=== PATIENT | female | born 1965 | race Caucasian/White ===

== ENCOUNTER 2017-01-06 09:10 | Emergency (ER) | payer OTHER ==
[~2017-01-06] VITALS: Ht 182.9 cm; Wt 66.3 kg
[~2017-01-06 09:10] MED LIST: ILOTYCIN1 GM LEFT EYE; NAPROXEN500 MG PO; PREDNISONE20 MG PO; VALIUM2 MG PO
[2017-01-06 10:27] LABS: INFLUENZA A VIRAL ANTIGEN NEGATIVE; INFLUENZA B VIRAL ANTIGEN NEGATIVE
[2017-01-06 11:32] VITALS: BP 130/74
== END 2017-01-06 11:33 | disposition home or self-care (01) ==
LOC: EME 09:10
PROVIDERS: Nurse Practitioner Family
DX: J06.9 Acute upper respiratory infection, unspecified (principal); H92.03 Otalgia, bilateral; Z85.41 Personal history of malignant neoplasm of cervix uteri; Z87.891 Personal history of nicotine dependence
CPT/HCPCS: 71020; 87502; 87651 90; 99281; 99284